=== PATIENT | female | born 2000 | race African-American/Black ===

== ENCOUNTER 2019-11-03 10:31 | Emergency (ER) | payer BC, SELFPAY ==
--- NOTE | 2019-11-03 10:37 | ED.GENADULT ---
HPI - General Adult General Chief complaint: Upper Respiratory Infection Stated complaint: strep test Time Seen by Provider: 11/03/19 10:54 Source: patient Mode of arrival: ambulatory Limitations: no limitations History of Present Illness HPI narrative: 19-year-old female patient presents to the [facility] with request for strep test. Patient states that last week she had a little bit of a sore throat and a runny nose which has since resolved. Denies any fevers, ear pain, runny nose or sore throat at this time. Denies any cough, chest pain, shortness of breath, abdominal pain, nausea, vomiting or diarrhea. Patient states she has never had strep before but just wanted to come in to get checked to see if she had strep last week. Patient denies taking any medications at this time. Denies any breast-feeding or at this time. Related Data Home Medications Medication Instructions Recorded Confirmed No Home Medications 11/03/19 11/03/19 Allergies Allergy/AdvReac Type Severity Reaction Status Date / Time No Known Allergies Allergy Verified 11/03/19 10:44 Review of Systems Review of Systems: Narrative: CONSTITUTIONAL: Denies fever, chills, or sweats. EYES: Denies visual changes, redness, or discharge. ENT: Positive rhinorrhea that has since resolved, denies congestion, positive sore throat that has since resolved, denies otalgia. CARDIOVASCULAR: Denies chest pain, palpitations, or edema. RESPIRATORY: Denies cough or dyspnea. GASTROINTESTINAL: Denies abdominal pain, nausea, vomiting, or diarrhea. GENITOURINARY: Denies dysuria or hematuria. SKIN: Denies rash or itching. MUSCULOSKELETAL: Denies back pain, joint pain, or myalgia. NEUROLOGIC: Denies headache, numbness, or weakness. PSYCHIATRIC: Denies anxiety or depression. PMFSH Comments At the time of my signature I agree with nursing past medical history, surgical, social, and family history. There is no relevant family history pertinent to the presenting complaint. Exam Narrative: Exam Narrative: GENERAL: Well-appearing, well-nourished, and in no acute distress. HEAD: Normocephalic, atraumatic. No tenderness noted to frontal and maxillary sinuses on palpation EYES: PERRLA and EOMI. ENT: Nares clear, no rhinorrhea or epistaxis. Mucous membranes moist. Posterior pharynx with slight postnasal drip noted. No tonsil enlargement, no exudates or lesions present. Bilateral TMs are clear with no erythema or foreign bodies in the canal. NECK: Supple. No lymphadenopathy CHEST: Clear to auscultation. No respiratory distress. HEART: Regular rate and rhythm. No murmur heard. Normal peripheral pulses. ABDOMEN: Soft, nontender, nondistended, normal active bowel sounds. EXTREMITIES: Normal range of motion. No edema. SKIN: Warm, dry, no rash. NEURO: No focal deficits. Alert and oriented x3. Course Vital Signs Vital signs: Vital Signs Temperature 37.2 C 11/03/19 10:45 Pulse Rate 66 11/03/19 10:45 Respiratory Rate 16 11/03/19 10:45 Blood Pressure 121/67 11/03/19 10:45 Pulse Oximetry 99 11/03/19 10:45 Temperature 37.2 C 11/03/19 10:45 Pulse Rate 66 11/03/19 10:45 Respiratory Rate 16 11/03/19 10:45 Blood Pressure 121/67 11/03/19 10:45 Pulse Oximetry 99 11/03/19 10:45 Vital signs reviewed. Medical Decision Making Differential Diagnosis Differential Diagnosis: Differential diagnosis: Viral pharyngitis, pharyngitis, group A strep, infectious mononucleosis, gonococcal pharyngitis, exudative pharyngitis, oral candidiasis. Chronic allergies, postnasal drip, GERD, abscess formation, but glottitis, retropharyngeal abscess formation, or airway obstruction. Discussed with patient the fact that she has no symptoms at this time the symptoms that she did have last week has since resolved I do not see a need to test her for strep at this time. Discussed with her that most likely the test will come back negative and we would not do anything differen
[2019-11-03 10:45] VITALS: BP 121/67; PULSE 66; RESP 16; TEMP 37.2; O2SAT 99
== END 2019-11-03 11:03 | disposition home or self-care (01) ==
PROVIDERS: Emergency Provider Nurse Practitioner Family
DX: R09.82 Postnasal drip (principal); J30.9 Allergic rhinitis, unspecified
CPT/HCPCS: 99201; G0463

== ENCOUNTER 2024-09-24 17:36 | Emergency (ER) | payer OTHER, SELFPAY ==
[2024-09-24 17:46] VITALS: BP 120/76; PULSE 77; RESP 16; TEMP 37.2; O2SAT 100
--- NOTE | 2024-09-24 18:18 | ED_ITS ---
HPI - General Adult General Chief complaint: Chest Pain Stated complaint: Chest Wall/Back Pain Time Seen by Provider: 09/24/24 17:38 Source: patient Mode of arrival: ambulatory Limitations: no limitations History of Present Illness HPI narrative: Patient is a 24-year-old female presents with low back pain that started a month ago but has slowly been moving up her back. Patient also reports went back pain resolves she has started having chest pain that is sharp to mid chest and she feels palpitations. Patient also states the last 2 nights at work she has noticed her resting heart rate being 70-90 instead of in the 60s. Denies any new activities at work or home that would have caused injury. Denies any new stress that would cause anxiety. Patient denies any shortness of breath, acid reflux, cough, URI symptoms, lightheadedness. Patient is now concerned it is heart related and is not able to get into new PCP until November. Related Data Home Medications ?Medication ?Instructions ?Recorded ?Confirmed ?Last Taken ?Type No Home Medications 11/03/19 09/24/24 Unknown History Allergies Allergy/AdvReac Type Severity Reaction Status Date / Time No Known Allergies Allergy Verified 09/24/24 17:56 Review of Systems Review of Systems: All systems reviewed & are unremarkable except as noted in HPI and below Constitutional: Constitutional: Denies body ache(s), Denies chills, Denies fatigue, Denies fever(s), Denies headache(s), Denies malaise and Denies weakness Eyes: Eyes: Denies blurry vision, Denies irritation and Denies loss of vision ENT: Denies otalgia, Denies headache(s), Denies nasal discharge, Denies sinus pain and Denies sore throat Cardiovascular: Cardiovascular: Reports chest pain, Reports palpitations and Denies dyspnea Respiratory: Respiratory: Denies dyspnea Gastrointestinal: Gastrointestinal: Denies abdominal pain, Denies melena, Denies hematochezia, Denies diarrhea, Denies nausea and Denies vomiting Musculoskeletal: Musculoskeletal: Reports back pain, Denies myalgias and Denies arthralgias Integumentary/Breasts: Skin/Breast: Denies pruritus and Denies rash Neurologic: Denies headache(s), Denies loss of vision and Denies weakness Psychiatric: Psychiatric: Reports no additional psychiatric complaints Endocrine: Endocrine: Denies fatigue PMFSH Comments At time of signature, agree with nursing past medical, surgical, social and family history. There is no relevant family history pertinent to the presenting complaint. Exam Const: General: cooperative, healthy appearing, comfortable, no acute distress and well nourished Nutritional Appearance: well nourished Orientation/consciousness: patient oriented x3 Limitations: no limitations HENMT: Head: normal to inspection, normocephalic and atraumatic Ears: hearing grossly normal bilaterally and external ears normal Face/Nose/Sinus: Normal external nose present, normal facial exam and face symmetric Face and sinus: normal facial exam and face symmetric Mouth: Yes lip normal Eyes: General: appearance normal, both eyes and all related structures Alignment and Position: alignment normal and position normal Periorbital: periorbital findings normal Eyelids: eyelids normal Pupils: Equal, round and reactive pupils present EOM: EOMs intact bilaterally Neck: Neck: normal visual inspection, full ROM and supple Chest: Chest palpation & inspection: normal inspection of the chest Resp: Effort & Inspection: normal respiratory effort and able to speak in complete sentences Auscultation: clear to auscultation bilaterally Cardio: Rate: regular rate Rhythm: regular rhythm Heart sounds: S1 normal heart sound present and S2 normal heart sound present GI: Inspection: normal to inspection Skin: General skin exam: normal color and no rashes or lesions noted Neuro: General: patient oriented x3 and moves all extremities Cranial nerve s: Yes Equal, round and reactive pupils present Speech: normal speech Gait exam (Neuro): Normal gait present Extrem: General: normal to inspection, full ROM and no edema Psych: Appearance: grossly normal and well kempt Mental Status: mental status grossly normal Speech and movement: Normal speech and movement present Affect: normal affect Attitude: cooperative Thought process: Normal thought process present Course Course Emergency Course: Patient being transferred to [facility] for further workup evaluation concerning chest pain and palpitations. Patient needs to rule out ACS verses an xiety verses abnormal rhythm. Portions of this record may have been created with voice recognition software Level of Care: Express Care Visit Vital Signs Vital signs: Vital Signs Temperature 37.2 C 09/24/24 17:46 Pulse Rate 77 09/24/24 17:46 Respiratory Rate 16 09/24/24 17:46 Blood Pressure 120/76 09/24/24 17:46 Pulse Oximetry 100 09/24/24 17:46 Oxygen Delivery Room Air 09/24/24 17:46 Temperature 37.2 C 09/24/24 17:46 Pulse Rate 77 09/24/24 17:46 Respiratory Rate 16 09/24/24 17:46 Blood Pressure 120/76 09/24/24 17:46 Pulse Oximetry 100 09/24/24 17:46 Oxygen Delivery Room Air 09/24/24 17:46 Reviewed Transfer Transfered to: [facility]: Other (Private auto. due to length of symptoms patient declines EMS) Transfer rationale: Back pain, chest pain and palpitations Accepting physician: Nile SINGH Medical Decision Making MDM Narrative Medical decision making narrative: Patient being transferred to [facility] for further workup evaluation concerning chest pain and palpitations. Patient needs to rule out ACS verses anxiety verses abnormal rhythm. Differential Diagnosis Differential Diagnosis: Electrolyte imbalances, arrhythmia, anxiety, ACS Medical Records Medical records reviewed: Yes I reviewed the external patient's medical records. Vital Signs Vital Signs: Vital Signs Temperature 37.2 C 09/24/24 17:46 Pulse Rate 77 09/24/24 17:46 Respiratory Rate 16 09/24/24 17:46 Blood Pressure 120/76 09/24/24 17:46 Pulse Oximetry 100 09/24/24 17:46 Oxygen Delivery Room Air 09/24/24 17:46 Temperature 37.2 C 09/24/24 17:46 Pulse Rate 77 09/24/24 17:46 Respiratory Rate 16 09/24/24 17:46 Blood Pressure 120/76 09/24/24 17:46 Pulse Oximetry 100 09/24/24 17:46 Oxygen Delivery Room Air 09/24/24 17:46 Reviewed Discharge Plan Discharge Clinical Impression: Atypical chest pain Low back pain Qualifiers: Chronicity: acute Back pain laterality: midline Sciatica presence: without sciatica Qualified Code(s): M54.50 - Low back pain, unspecified Patient Disposition: Acute Care Hospital Condition: Stable Patient Language: Malay Prescriptions: No Action No Home Medications Follow-up/Referrals: PHYSICIAN,SUPERVISOR FOOD CHECKERS [employer] CASHIERS [Primary Care Provider] - Time of Disposition: 18:40
== END 2024-09-24 18:15 | disposition short-term general hospital (02) ==
PROVIDERS: Emergency Provider Nurse Practitioner Family
DX: R07.89 Other chest pain (principal); M54.50 Low back pain, unspecified
CPT/HCPCS: 99212; G0463

== ENCOUNTER 2024-09-24 18:37 | Emergency (ER) | payer OTHER, SELFPAY ==
--- NOTE | ~2024-09-24 | XR_ITS ---
CHEST RADIOGRAPH, PA AND LATERAL CLINICAL HISTORY: cp . COMPARISON: None available TECHNIQUE: PA and lateral views of the chest. FINDINGS The cardiomediastinal silhouette is unremarkable. The lungs are clear. Visualized osseous structures and soft tissues are unremarkable. IMPRESSION: No focal infiltrate or effusion. Reviewed, dictated and finalized at location A. NDS GRADER
--- OUTSIDE RECORDS SUMMARY | 2024-09-24 18:41 | XMS_ITS | Clinical Summary ---
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 Gender Identity Not on file Sexual Orientation Not on file Plan of Treatment Upcoming Encounters Date Type Department Care Team (Late st Contact Info) Description 11/19/2024 2:00 PM CDT Office Visit [facility] Multispecialty Care - [address] [address] [address] [place], [place] [id number] Deric Rodriguez MD [address] [place] [address] Health Maintenance Due Date Last Done Comments Cervical Cancer Screening Pa p Smear (Age 21 to 29) Every 3 Years 1998 Cervical Cancer Screening 1998 Annual Physical 2001 HPV Vaccines (1 - 3-dose series) 2013 Hepatitis C 02/16/2016 DTaP, Tdap and Td Vaccines ( 1 - Tdap) 2017 Hepatitis B Vaccines (1 of 3 - 19+ 3-dose series) 2017 COVID-19 Vaccine (2023-2 5 season) 2024 Influenza Adult (#1) 2024 Meningococcal B Vaccine Aged Out No l onger eligible based on patient's age to complete this topic Meningococcal Vaccine Aged Out No maria d beni eligible based on patient's age to complete this topic Pneumococcal Vaccine: Pediat rics (0 to 5 Years) and At-Risk Patients (6 to 64 Years) Aged Out No longer eligible b ased on patient's age to complete this topic RSV Immunizations Under 20 Months Aged Out No longer eligible based on patient's age to complete this topic Insurance [facility] Care Teams Mat Machine Operator Relationship Specialty Start Date End Date Deric Rodriguez MD [address] [facility] [address] [place] [id number] PCP - General INTERNAL MEDICINE 09/09/24
--- NOTE | 2024-09-24 18:42 | ECG_ITS ---
Test Date: 2024-09-24 18:47:45 Measurements Intervals [place] Rate: 64 P: 41 VT: 153 QRS: 75 QRSD: 90 T: 48 QT: 412 QTc: 428 Interpretive Statements SINUS RHYTHM WITH SINUS ARRHYTHMIA NORMAL ECG No previous ECG available for comparison Electronically Signed On 09-24-2024 19:32:00 ASSOCIATE MEDIA PLANNER by Ronni Gonzalez D.O.
[2024-09-24 19:17] LABS: Basophils Percent Auto 0.8 % (0.2-1.2); Eosinophils Absolute Auto 0.1 K/mm3 (0-0.3); Eosinophils Percent Auto 1.9 % (0-4.4); Hemoglobin 13.3 g/dL (12.0-15.0); Immature Granulocyte Absolute 0.01 K/mm3 (0.00-0.031); Immature Granulocyte Percent A 0.3 % (0-0.5); Lymphocytes Absolute Auto 1.51 K/mm3 (0.9-3.2); Lymphocytes Percent Auto 40.4 % (18.3-44.2); Mean Corpuscular HGB Conc 30.9 g/dl (32-36); Mean Corpuscular Hemoglobin 26.5 pg (26-34); Mean Corpuscular Volume 85.8 fl (80-100); Mean Platelet Volume 9.1 fl (7.4-10.4); Monocytes Absolute Auto 0.4 K/mm3 (0.1-0.6); Neutrophils Absolute Auto 1.7 K/mm3 (1.3-6.7); Neutrophils Percent Auto 45.6 % (45.5-73.1); Platelet Count Result 408 k/mm3 (150-375); Red Blood Count 5.01 M/mm3 (4.2-5.4); Red Cell Distribution Width 13.9 % (11.5-14.5); White Blood Count 3.7 K/mm3 (4.5-10.0)
[2024-09-24 19:21] VITALS: BP 123/85; PULSE 74; RESP 18; O2SAT 100
[2024-09-24 19:27] LABS: INR 1.2; Prothrombin Time 15.7 Seconds (11.1-14.7)
[2024-09-24 19:28] LABS: Alanine Aminotransferase 20 U/L (6-35); Albumin Level 4.6 g/dL (3.5-5.1); Alkaline Phosphatase 67 U/L (38-126); Anion Gap 11 mmol/L (4-12); Aspartate Amino Transferase 26 U/L (14-36); Bilirubin,Total 0.7 mg/dL (0.2-1.3); Blood Urea Nitrogen 13 mg/dL (7-17); Calcium 9.6 mg/dL (8.4-10.2); Carbon Dioxide 22 mmol/L (22-30); Chloride 106 mmol/L (98-107); Estimated CRCL calculation 92 ml/min; Estimated Glomerular Filt Rate > 60; Glucose 96 mg/dL (65-110); Lipase 32 U/L (23-300); Partial Thromboplastin Time 34.5 Seconds (22.3-36.8); Sodium 139 mmol/L (137-145)
[2024-09-24 19:39] LABS: Troponin I < 0.012 ng/mL (0.000-0.034)
[2024-09-24 21:21] LABS: Add Urine Microscopic? NO; Appearance Urine Clear (Clear); Bilirubin Urine Negative (Negative); Blood Urine Negative (Negative); Color Urine Yellow (Yellow); Glucose Urine UA Negative (Negative); Ketones Urine Negative (Negative); Leukocyte Esterase Ur Negative LEU/UL (Negative); Nitrate Urine Negative (Negative); Protein Urine Negative (Negative); Specific Grav Ur 1.019 (1.001-1.035); Urobilinogen Urine 0.2 mg/dL (<2.0)
--- NOTE | 2024-09-24 21:44 | ED.ARRPALP ---
HPI - Arrhythmia/Palpitations General Chief Complaint: Arrhythmia/Palpitations Stated Complaint: back pain, palpatation Time Seen by Provider: 09/24/24 21:04 History of Present Illness HPI narrative: Patient has been having LBP for a while; sometimes it goes up to her middle back and chest. She also used to get frequent UTIs. Related Data Allergies Allergy/AdvReac Type Severity Reaction Status Date / Time No Known Allergies Allergy Verified 09/24/24 17:56 Review of Systems Review of Systems: All systems reviewed & are unremarkable except as noted in HPI and below Exam Narrative: EXAMINATION OF ORGAN SYSTEMS/BODY AREAS: Constitutional: Vital signs per nursing GENERAL:[No acute distress, non-toxic appearing.] HEAD: Normal with no signs of head trauma. EYES: EOMI, conjunctiva normal ENT: Hearing grossly intact LUNGS: Nonlabored breathing. HEART: [Regular rate and rhythm] ABD: [Soft], [nontender to palpation] EXT: Normal range of motion SKIN: [No rashes or lesions.] NEURO: [Alert and oriented x 3. No gross focal sensory or strength deficits.] PSYCH: Normal affect Course Vital Signs Vital signs: Vital Signs Pulse Rate 74 09/24/24 19:21 Respiratory Rate 18 09/24/24 19:21 Blood Pressure 123/85 09/24/24 19:21 Pulse Oximetry 100 09/24/24 19:21 Pulse Rate 74 09/24/24 19:21 Respiratory Rate 18 09/24/24 19:21 Blood Pressure 123/85 09/24/24 19:21 Pulse Oximetry 100 09/24/24 19:21 MDM - Arrhythmia/Palpitations MDM Narrative Medical decision making narrative: ED COURSE AND MEDICAL DECISION MAKINF presenting with chest pain and low back pain. EKG done in triage negative for acute ischemic changes. Cardiac workup is initiated. EKG: Performed in triage and interpreted by me. Normal sinus rhythm. Rate 64. Normal axis. MI normal. QRS duration normal. QTc normal. No pathologic Q waves. No ST segment elevation or depression to suggest acute ischemia. No RV strain pattern. HEART score is 0 with no acute ischemic changes on EKG and negative troponin making ACS unlikely. Negative PERC making PE unlikely. Presentation not consistent with dissection or aneurysm without radiation of pain or pulse deficits. CXR negative for mediastinal widening. No abdominal pain or signs of sepsis that would be concerning for esophageal perforation or mediastinitis. No cardiomegaly or JVD to suggest pericardial effusion/tamponade. HEART Score: 0. (Risk of major adverse cardiac events over 6 weeks: Score of 0-3 is low risk <2% ; Score of 4-6 is moderate risk ~12-15%; Score of 7-12 is high risk ~50%). - History - [0]. (Not suspicious 0; moderately suspicious 1; highly suspicious 2). - EKG - [0]. (No ST changes 0; non-specific ST/T changes 1; ST depression 2). - Age - [0]. (<45 = 0; 46-65 = 1; >65 = 2). - Risk factors - [0]. (0 factors = 0; 1-2 factors = 1; >2 factors = 2). - Troponin - [0]. (Normal = 0; Indeterminate = 1; High = 2). She is very well-appearing, ambulating with normal steady gait. On repeat evaluation just prior to discharge, the patient is no acute distress. I had a long discussion with the patient and with shared decision making, she is comfortable with outpatient management. She was given clear return instructions by myself in person as well as on discharge paperwork. She already has follow-up with her PCP. Procedures: Pulse oximetry interpretation - not hypoxic. EKG interpretation. Review of medical records. Lab Data 09/24/24 19:01 09/24/24 19:01 Labs: Lab Results 09/24/24 09/24/24 Range/Units 19:01 21:15 WBC 3.7 L (4.5-10.0) K/mm3 RBC 5.01 (4.2-5.4) M/mm3 Hgb 13.3 (12.0-15.0) g/dL Hct 43.0 (37.0-47.0) % MCV 85.8 (80-100) fl MCH 26.5 (26-34) pg MCHC 30.9 L (32-36) g/dl RDW 13.9 (11.5-14.5) % Plt Count 408 H (150-375) k/mm3 MPV 9.1 (7.4-10.4) fl Immature Gran % (Auto) 0.3 (0-0.5) % Neut % (Auto) 45.6 (45.5-73.1) % Lymph % (Auto) 40.4 (18.3-44.2) % Bowie % (Auto) 11.0 H (2.6-8.5) % Eos % (Auto) 1.9 (0-4.4) % Baso % (Auto) 0.8 (0.2-1.2) % Lymph # (Auto) 1.51 (0.9-3.2) K/mm3 Bowie # (Auto) 0.4 (0.1-0.6) K/mm3 Eos # (Auto) 0.1 (0-0.3) K/mm3 Baso # (Auto) 0.0 (0.0-0.1) K/mm3 Abs Immat Gran (auto) 0.01 (0.00-0.031) K/mm3 Absolute Neuts (auto) 1.7 (1.3-6.7) K/mm3 Absolute Nucleated RBC 0.000 (0.0-0.012) K/mm3 Nucleated RBC % 0.0 (0.0-0.2) % PT 15.7 H (11.1-14.7) Seconds INR 1.2 APTT 34.5 (22.3-36.8) Seconds Sodium 139 (137-145) mmol/L Potassium 4.0 (3.4-5.0) mmol/L Chloride 106 (98-107) mmol/L Carbon Dioxide 22 (22-30) mmol/L Anion Gap 11 (4-12) mmol/L BUN 13 (7-17) mg/dL Creatinine 0.69 L (0.7-1.0) mg/dL Estim Creat Clear Calc 92 ml/min Estimated GFR > 60 (59 - ) Glucose 96 (65-110) mg/dL Calcium 9.6 (8.4-10.2) mg/dL Total Bilirubin 0.7 (0.2-1.3) mg/dL AST 26 (14-36) U/L ALT 20 (6-35) U/L Alkaline Phosphatase 67 (38-126) U/L Troponin I < 0.012 (0.000-0.034) ng/mL Total Protein 8.0 (6.3-8.2) g/dL Albumin 4.6 (3.5-5.1) g/dL Lipase 32 (23-300) U/L Urine Color Yellow (Yellow) Urine Appearance Clear (Clear) Urine pH 6.0 (5.0-9.0) Ur Specific [place] 1.019 (1.001-1.035) Urine Protein Negative (Negative) mg/dL Urine Glucose (UA) Negative (Negative) mg/dL Urine Ketones Negative (Negative) mg/dL Ur Blood (Man) Negative (Negative) Urine Nitrate Negative (Negative) Urine Bilirubin Negative (Negative) Urine Urobilinogen 0.2 (<2.0) mg/dL Leukocyte Esterase Rfl Negative (Negative) LORIE/UL Discharge Plan Discharge Clinical Impression: Atypical chest pain Low back pain Qualifiers: Chronicity: acute Back pain laterality: midline Sciatica presence: without sciatica Qualified Code(s): M54.50 - Low back pain, unspecified Patient Disposition: Home, Self-Care Condition: Stable Instructions: Chest Pain (ED), Back Pain (ED) Additional Instructions: Please follow up with your doctor; you can always return for any further issues. Patient Language: Sudanese Prescriptions: New methocarbamol 750 mg tablet 750 mg PO TID PRN (Reason: muscle spasm) Qty: 30 0RF ibuprofen 600 mg tablet 600 mg PO TID PRN (Reason: fever or pain) Qty: 30 0RF Follow-up/Referrals: PHYSICIAN,RUBBER COMPOUNDER SUPERVISOR [Primary Care Provider] -
--- OUTSIDE RECORDS SUMMARY | 2024-09-24 21:46 | XMS_ITS | Clinical Summary ---
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 Gender Identity Not on file Sexual Orientation Not on file Plan of Treatment Upcoming Encounters Date Type Department Care Team (Late st Contact Info) Description 11/19/2024 2:00 PM CDT Office Visit [facility] Multispecialty Care - [place] [address] [address] [place], [place] [phone] Deric Rodriguez MD [address] [place] [id number] Health Maintenance Due Date Last Done Comments [...] patient's age to complete this topic Insurance [facility] Care Teams Fiberglass Laminator Relationship Specialty Start Date End Date Deric Rodriguez MD [address] [facility] [address] [place] [id number] PCP - General INTERNAL MEDICINE 09/09/24
== END 2024-09-24 22:05 | disposition home or self-care (01) ==
LOC: ANHED 21:44
PROVIDERS: Family Medicine; Emergency Provider Emergency Medicine
DX: M54.50 Low back pain, unspecified (principal); R07.89 Other chest pain
CPT/HCPCS: 36415; 71046; 80053; 81003; 83690; 84484; 85025; 85610; 85730; 93005; 99284